=== PATIENT | female | born 1970 | race Caucasian/White ===

== ENCOUNTER → 2018-12-20 | Outpatient (CLI) | payer OTHER ==
[~2018-12-20] MED LIST: Amitiza24 MCG; Bystolic2.5 MG PO; Flomax0.4 MG PO; KETO10 PO; Klonopin0.5 MG PO; NAPR500 PO; OXYACE5T PO; PROM25 PO; Percocet 5-3251 EACH PO; RXHYD5325
[2018-12-24 16:06] LABS: HPV 16 Negative (Negative); HPV 18 Negative (Negative); HPV OTHER HR TYPES Negative (Negative)
== END | disposition home or self-care (01) ==
LOC: LAB SHORT 12:53 → LAB 12:53
PROVIDERS: Nurse Practitioner Women's Health
DX: Z12.72 Encounter for screening for malignant neoplasm of vagina (principal); Z91.89 Other specified personal risk factors, not elsewhere classified
CPT/HCPCS: 87624; G0123